=== PATIENT | male | born 1970 | race Hispanic/Latino ===

== ENCOUNTER 2017-11-10 15:42 | Emergency (ER) | payer MEDICAID ==
[2017-11-10] MEDS ORDERED: ONDANSETRON ODT 4 MG TAB ONE (16:20)
[2017-11-10] MEDS ORDERED: LIDOCAINE HCL-MPF 1% 2ML VIAL ONE (16:20)
[2017-11-10] MEDS ORDERED: CEFTRIAXONE SODIUM 1 GM ONE (16:20)
[2017-11-10] MEDS ORDERED: MORPHINE SULFATE 8 MG/ML VIAL ONE (16:21)
== END 2017-11-10 16:48 | disposition home or self-care (01) ==
LOC: EDH 15:42
DX: L02.214 Cutaneous abscess of groin (principal); M54.5 Low back pain; E11.9 Type 2 diabetes mellitus without complications; F20.9 Schizophrenia, unspecified; F31.9 Bipolar disorder, unspecified; Z72.0 Tobacco use; Z98.890 Other specified postprocedural states
CPT/HCPCS: 96372 ×2; 99284; J0696; J2270; J3490

== ENCOUNTER 2018-01-10 11:23 | Emergency (ER) | payer MEDICAID ==
[2018-01-10 12:04] LABS: BASOPHILS % (AUTO) 0.4 % (0.0-5.0); EOSINOPHILS % (AUTO) 0.8 % (0.0-8.0); HEMATOCRIT 49.2 % (42-54); LYMPHOCYTES % (AUTO) 20.1 % (21.0-51.0); MEAN CORPUSCULAR HEMOGLOBIN 32.5 pg (27.0-33.0); MEAN CORPUSCULAR HGB CONC 34.6 g/dL (32.0-36.0); MEAN CORPUSCULAR VOLUME 94.1 fL (79-99); MONOCYTES % (AUTO) 5.5 % (3.0-13.0); NEUTROPHILS % (AUTO) 73.2 % (40.0-77.0); PLATELET COUNT (AUTO) 171 K/uL (130-400); RED BLOOD CELL COUNT(AUTO) 5.23 MIL/uL (4.50-6.20); WHITE BLOOD COUNT (AUTO) 9.5 K/uL (4.8-10.8)
[2018-01-10 12:14] LABS: CREATININE 0.8 mg/dL (0.5-1.5); POTASSIUM 4.3 mmol/L (3.5-5.1)
[2018-01-10 12:16] LABS: INR 0.9 (0.85-1.15); PARTIAL THROMBOPLASTIN TIME 26.6 SEC (26.3-35.5); PROTHROMBIN TIME 9.5 SEC (9.6-11.6)
[2018-01-10 12:23] LABS: ALBUMIN 3.8 g/dL (3.5-5.0); BILIRUBIN,TOTAL 0.3 mg/dL (0.2-1.0); TOTAL PROTEIN, SERUM 7.5 g/dL (6.0-8.3)
[2018-01-10] MEDS ORDERED: ASPIRIN 325 MG TABLET ONE (12:39)
[2018-01-10] MEDS ORDERED: NITROGLYCERIN 0.4 MG SL TAB SL ONE (12:40)
[2018-01-10] MEDS ORDERED: SODIUM CHLORIDE 0.9% 1000ML 1,000 ML IV ONE (12:40)
[2018-01-10] MEDS ORDERED: INSULIN HUMULIN R 100 UNIT/ML 3ML ONE (12:42)
[2018-01-10] MEDS ORDERED: ONDANSETRON HCL 4 MG/2 ML VIAL ONE (13:25)
[2018-01-10] MEDS ORDERED: MORPHINE SULFATE 4 MG/1ML SYG ONE (13:26)
[2018-01-10 13:47] LABS: APPEARANCE,URINE Clear (CLEAR); BILIRUBIN,URINE Negative (NEGATIVE); COLOR,URINE Yellow (YELLOW); GLUCOSE, URINE (UA) >=1000 mg/dL (NEGATIVE); KETONES,URINE 15 mg/dL (NEGATIVE); LEUKOCYTE ESTERASE ,URINE Negative (NEGATIVE); NITRATE,URINE Negative (NEGATIVE); OCCULT BLOOD,URINE Negative (NEGATIVE); PH,URINE 5.5 (5.0-8.0); PROTEIN,URINE Negative (NEGATIVE); UROBILINOGEN,URINE 0.2 mg/dL (0.2-1.0)
[2018-01-10 14:06] LABS: BACTERIA,URINE Rare /HPF (None Seen); RBC,URINE 0-1 /HPF (0-1); SQUAMOUS EPITHELIAL CELL,UR Rare /HPF (0-2); WBC,URINE None Seen /HPF (0-1)
[2018-01-10] MEDS ORDERED: KETOROLAC TROMETHAMINE 30MG/ML ONE (15:42)
== END 2018-01-10 16:18 | disposition home or self-care (01) ==
LOC: EDH 11:23
DX: R07.89 Other chest pain (principal); I10 Essential (primary) hypertension; E11.9 Type 2 diabetes mellitus without complications; F20.9 Schizophrenia, unspecified; F31.9 Bipolar disorder, unspecified; Z72.0 Tobacco use
CPT/HCPCS: 36415; 71045; 80053; 81001; 82550; 83874; 84484 ×2; 85025; 85378; 85610; 85730; 93005 ×2; 96374; 96375; 99284; J1815; J1885; J2270; J2405; J7030

== ENCOUNTER 2018-08-01 17:06 | Inpatient (IN) | payer MEDICAID ==
[~2018-08-01] VITALS: Ht 180.3 cm; Wt 113.1 kg
[2018-08-01 17:38] LABS: BASOPHILS % (AUTO) 0.3 % (0.0-5.0); EOSINOPHILS % (AUTO) 0.4 % (0.0-8.0); HEMATOCRIT 44.8 % (42-54); LYMPHOCYTES % (AUTO) 10.3 % (21.0-51.0); MEAN CORPUSCULAR HEMOGLOBIN 32.9 pg (27.0-33.0); MEAN CORPUSCULAR HGB CONC 34.2 g/dL (32.0-36.0); MEAN CORPUSCULAR VOLUME 96.2 fL (79-99); MONOCYTES % (AUTO) 4.8 % (3.0-13.0); NEUTROPHILS % (AUTO) 84.2 % (40.0-77.0); PLATELET COUNT (AUTO) 290 K/uL (130-400); RED BLOOD CELL COUNT(AUTO) 4.66 MIL/uL (4.50-6.20); RED CELL DISTRIBUTION WIDTH 13.4 % (11.0-15.5); WHITE BLOOD COUNT (AUTO) 14.3 K/uL (4.8-10.8)
[2018-08-01 17:46] LABS: CREATININE 0.8 mg/dL (0.5-1.5); POTASSIUM 3.8 mmol/L (3.5-5.1)
[2018-08-01] MEDS ORDERED: ZOSYN 3.375GM+NS 50ML 50 ML IV ONE (17:49)
[2018-08-01] MEDS ORDERED: MORPHINE SULFATE 4 MG/1ML SYG ONE ×2 (17:50→20:13)
[2018-08-01] MEDS ORDERED: ONDANSETRON HCL 4 MG/2 ML VIAL ONE (17:50)
[2018-08-01 17:51] LABS: ALBUMIN 2.7 g/dL (3.5-5.0); BILIRUBIN,TOTAL 0.2 mg/dL (0.2-1.0); TOTAL PROTEIN, SERUM 8.1 g/dL (6.0-8.3)
[2018-08-01] MEDS ORDERED: SODIUM CHLORIDE 0.9% 1000ML 1,000 ML IV ONE ×2 (17:51→20:14)
[2018-08-01] MEDS ORDERED: ACETAMINOPHEN EXTRA STRENGTH 500 MG TABLET ONE (18:05)
[2018-08-01 18:16] LABS: INR 0.98 (0.85-1.15); PROTHROMBIN TIME 10.3 SEC (9.6-11.6)
[2018-08-01 18:47] LABS: CREATINE KINASE, TOTAL 116 U/L (21-232); MYOGLOBIN 22 ng/mL (10-92); TROPONIN I < 0.04 ng/mL (0.00-0.06)
[2018-08-01] MEDS ORDERED: PREGABALIN 75 MG CAPSULE ONE (20:12)
[2018-08-01] MEDS ORDERED: VANCOMYCIN 1GM+NS 250ML 250 ML IV ONE (20:12)
[2018-08-01] MEDS ORDERED: COMPOUND IV REFRIGERATED 1 EACH IVSOLN MISC PRN (21:15)
[2018-08-01] MEDS ORDERED: MORPHINE SULFATE 2 MG/ML 1ML SYG IVP PRN (21:15)
[2018-08-01] MEDS ORDERED: MORPHINE SULFATE 4 MG/1ML SYG IVP PRN (21:15)
[2018-08-01] MEDS ORDERED: ACETAMINOPHEN 325 MG TAB PO PRN (21:15)
[2018-08-01] MEDS ORDERED: HYDRALAZINE HCL 20 MG/ML VIAL IV PRN (21:15)
[2018-08-01] MEDS ORDERED: LORAZEPAM 2 MG/ML 1 ML VIAL ONE (22:20)
[2018-08-02 01:40] VITALS: BP 151/96
[2018-08-02] MEDS ORDERED: ALPRAZOLAM 1 MG TAB PO ONE (03:15)
[2018-08-02] MEDS ORDERED: MORPHINE SULFATE 2 MG/ML 1ML SYG IVP PRN (03:30)
[2018-08-02] MEDS ORDERED: MORPHINE SULFATE 4 MG/1ML SYG IM PRN (03:30)
[2018-08-02] MEDS ORDERED: MORPHINE SULFATE 2 MG/ML 1ML SYG ONE (03:34)
[2018-08-02] MEDS: LACTATED RINGERS 1000ML 1,000 ML IV SCH ×4 (03:36→22:11)
[2018-08-02] MEDS: ZOSYN 3.375GM+NS 50ML 50 ML IV SCH ×2 (03:36→12:31)
[2018-08-02 04:00] VITALS: BP 150/89
[2018-08-02 04:44] LABS: HEMATOCRIT 39.9 % (42-54); MEAN CORPUSCULAR HEMOGLOBIN 32.2 pg (27.0-33.0); MEAN CORPUSCULAR HGB CONC 33.8 g/dL (32.0-36.0); MEAN CORPUSCULAR VOLUME 95.4 fL (79-99); PLATELET COUNT (AUTO) 284 K/uL (130-400); RED BLOOD CELL COUNT(AUTO) 4.18 MIL/uL (4.50-6.20); RED CELL DISTRIBUTION WIDTH 13.3 % (11.0-15.5); WHITE BLOOD COUNT (AUTO) 10.9 K/uL (4.8-10.8)
[2018-08-02 04:55] LABS: CREATININE 0.7 mg/dL (0.5-1.5); POTASSIUM 3.6 mmol/L (3.5-5.1)
[2018-08-02] MEDS: INSULIN R NPO SSI SQ SCH ×3 (06:00→12:33)
[2018-08-02 08:00] VITALS: BP 149/88
[2018-08-02] MEDS ORDERED: PANTOPRAZOLE SODIUM 40 MG TABLET.DR PO SCH (09:00)
[2018-08-02] MEDS: PREGABALIN 75 MG CAPSULE PO SCH ×3 (10:04→22:05)
[2018-08-02] MEDS: PANTOPRAZOLE 40 MG/VIAL IVP SCH (10:04)
[2018-08-02] MEDS: VANCOMYCIN 1.75 GM in SODIUM CHLORIDE 0.9% 250 ML IV SCH ×2 (10:09→22:19)
[2018-08-02 11:00] VITALS: BP 132/73
--- NOTE | 2018-08-02 13:08 | NUR ---
ASHLYN Jeffrey met with pt and friend at bedside. Pt is on SSD for Bipolar, Schizophrenia, PTSD. Pt has daily provider thru [facility], no DME or services. Pt's mother Jazz Garcia [phone] is er contact. [place] Addendum: 08/02/18 at 1310 by FIORELLA FRIAS SS Amended: Links added.
[2018-08-02] MEDS: ACETAMINOPHEN-CODEINE 300/30MG TAB PO PRN (15:31)
--- NOTE | 2018-08-02 15:47 | NUR ---
[facility] CONSULT PATIENT ASSESSED ORDERED: PATIENT PRESENTS WITH LT SCROTAL AND PERINEAL ABSCESS; PATIENT REFERRED UPON DISCHARGE TO [facility] WITH DR. EZ PAUL; [facility] RECOMMENDATIONS SUBMITTED. Addendum: 08/02/18 at 1551 by JHONATAN BUTLER LVN LVN W Amended: Links added.
[2018-08-02] MEDS: METFORMIN HCL 850 MG TABLET PO SCH (17:00)
[2018-08-02 20:00] VITALS: BP 159/93
[2018-08-02] MEDS: MORPHINE SULFATE 4 MG/1ML SYG IVP PRN (22:11)
[2018-08-03] VITALS (7 sets, daily range): BP systolic 106–144; BP diastolic 71–105
[2018-08-03] MEDS: ACETAMINOPHEN-CODEINE 300/30MG TAB PO PRN ×2 (00:33→22:28)
[2018-08-03] MEDS: INSULIN HUMULIN R 100 UNIT/ML 3ML SQ SCH ×5 (00:36→21:29)
[2018-08-03] MEDS ORDERED: PALI819S IM (02:04)
[2018-08-03] MEDS ORDERED: TRAZ300T2 PO (02:04)
[2018-08-03] MEDS ORDERED: FLUO40CA7 PO (02:04)
[2018-08-03] MEDS ORDERED: LITH300C3 PO (02:04)
[2018-08-03] MEDS: ZOSYN 3.375GM+NS 50ML 50 ML IV SCH ×3 (02:20→17:45)
[2018-08-03 04:15] LABS: HEMATOCRIT 39.7 % (42-54); MEAN CORPUSCULAR HEMOGLOBIN 33.3 pg (27.0-33.0); MEAN CORPUSCULAR VOLUME 95.2 fL (79-99); PLATELET COUNT (AUTO) 266 K/uL (130-400); RED BLOOD CELL COUNT(AUTO) 4.17 MIL/uL (4.50-6.20); RED CELL DISTRIBUTION WIDTH 13.3 % (11.0-15.5); WHITE BLOOD COUNT (AUTO) 10.2 K/uL (4.8-10.8)
[2018-08-03 04:37] LABS: CREATININE 0.9 mg/dL (0.5-1.5); POTASSIUM 3.7 mmol/L (3.5-5.1)
[2018-08-03] MEDS: LACTATED RINGERS 1000ML 1,000 ML IV SCH ×3 (05:30→21:28)
[2018-08-03] MEDS: MORPHINE SULFATE 4 MG/1ML SYG IVP PRN ×2 (05:31→20:55)
[2018-08-03] MEDS: METFORMIN HCL 850 MG TABLET PO SCH ×2 (10:05→17:45)
[2018-08-03] MEDS: PREGABALIN 75 MG CAPSULE PO SCH ×3 (10:06→20:59)
[2018-08-03] MEDS: PANTOPRAZOLE 40 MG/VIAL IVP SCH (10:06)
[2018-08-03] MEDS: VANCOMYCIN 1.75 GM in SODIUM CHLORIDE 0.9% 250 ML IV SCH ×2 (11:02→21:03)
[2018-08-04] MEDS: ZOSYN 3.375GM+NS 50ML 50 ML IV SCH ×3 (02:07→18:00)
[2018-08-04 04:00] VITALS: BP 136/85
[2018-08-04] MEDS: LACTATED RINGERS 1000ML 1,000 ML IV SCH ×3 (04:32→21:38)
[2018-08-04] MEDS: INSULIN HUMULIN R 100 UNIT/ML 3ML SQ SCH ×5 (06:28→21:39)
[2018-08-04 08:00] VITALS: BP 154/81
[2018-08-04] MEDS: METFORMIN HCL 850 MG TABLET PO SCH (08:00)
[2018-08-04] MEDS: PANTOPRAZOLE 40 MG/VIAL IVP SCH (09:38)
[2018-08-04] MEDS: PREGABALIN 75 MG CAPSULE PO SCH ×3 (09:39→21:21)
[2018-08-04] MEDS: VANCOMYCIN 1.75 GM in SODIUM CHLORIDE 0.9% 250 ML IV SCH (09:40)
[2018-08-04 11:00] VITALS: BP 142/89
[2018-08-04 16:00] VITALS: BP 146/104
[2018-08-04] MEDS: VANCOMYCIN 1.5 GM in SODIUM CHLORIDE 0.9% 250 ML IV SCH ×2 (17:08→22:11)
[2018-08-04 20:00] VITALS: BP 137/92
[2018-08-04] MEDS: LORAZEPAM 2 MG/ML 1 ML VIAL IVP PRN (21:13)
[2018-08-04] MEDS: INSULIN GLARGINE 100 UNITS/ML 10 ML VIAL SQ SCH (21:40)
[2018-08-04 22:05] LABS: APPEARANCE,URINE CLEAR (CLEAR); BILIRUBIN,URINE NEGATIVE (NEGATIVE); GLUCOSE, URINE (UA) >=1000 mg/dL (NEGATIVE); KETONES,URINE NEGATIVE (NEGATIVE); LEUKOCYTE ESTERASE ,URINE NEGATIVE (NEGATIVE); NITRATE,URINE NEGATIVE (NEGATIVE); OCCULT BLOOD,URINE NEGATIVE (NEGATIVE); PH,URINE 6.5 (5.0-8.0); PROTEIN,URINE NEGATIVE (NEGATIVE); UROBILINOGEN,URINE 0.2 mg/dL (0.2-1.0)
[2018-08-04 22:06] LABS: COLOR,URINE STRAW (YELLOW)
[2018-08-05] VITALS: BP 136/75
[2018-08-05] MEDS: ZOSYN 3.375GM+NS 50ML 50 ML IV SCH ×3 (01:35→19:57)
[2018-08-05] MEDS: MORPHINE SULFATE 4 MG/1ML SYG IVP PRN ×3 (01:38→19:57)
[2018-08-05 04:00] VITALS: BP 137/74
[2018-08-05] MEDS: ACETAMINOPHEN-CODEINE 300/30MG TAB PO PRN ×2 (04:04→15:12)
[2018-08-05] MEDS: LACTATED RINGERS 1000ML 1,000 ML IV SCH ×2 (05:15→13:15)
[2018-08-05] MEDS: VANCOMYCIN 1.5 GM in SODIUM CHLORIDE 0.9% 250 ML IV SCH ×3 (06:07→22:55)
[2018-08-05] MEDS: INSULIN HUMULIN R 100 UNIT/ML 3ML SQ SCH ×4 (06:09→23:06)
[2018-08-05 07:31] VITALS: BP 130/58
--- NOTE | 2018-08-05 08:00 | NUR ---
PATIENT INSTRUCTED NOT TO GO OUTSIDE FOR A CIGARETTE, WALKED OUT WHILE PASSING MEDS TO OTHER PATIENTS.
[2018-08-05] MEDS: PREGABALIN 75 MG CAPSULE PO SCH ×3 (09:25→19:57)
[2018-08-05] MEDS: PANTOPRAZOLE SODIUM 40 MG TABLET.DR PO SCH (09:25)
[2018-08-05 11:38] VITALS: BP 131/85
--- NOTE | 2018-08-05 12:00 | NUR ---
NO INTERVENTION FOR PER SURGEON ATA.
--- NOTE | 2018-08-05 13:00 | NUR ---
sharron valladares, aware of pt requesting to go for a smoke, states will ask. aware to see home meds list, states will do.
--- NOTE | 2018-08-05 14:00 | NUR ---
PATIENT WAS INSTRUCTED NOT TO GO OUTSIDE, PATIENT KEEPS WALKING OUTSIDE WITHOUT PERMISSION.
[2018-08-05 16:28] VITALS: BP 126/79
--- NOTE | 2018-08-05 18:52 | NUR ---
PACKING CHANGED USING CLEAN TECHNIQUE NS, IODO PACKING AND 4X4S.
[2018-08-05 20:00] VITALS: BP 116/57
[2018-08-05] MEDS: INSULIN GLARGINE 100 UNITS/ML 10 ML VIAL SQ SCH (23:05)
[2018-08-06] VITALS: BP 139/88
[2018-08-06] MEDS: ZOSYN 3.375GM+NS 50ML 50 ML IV SCH ×2 (03:31→10:37)
[2018-08-06 04:00] VITALS: BP 128/91
[2018-08-06 05:51] LABS: BASOPHILS % (AUTO) 0.8 % (0.0-5.0); EOSINOPHILS % (AUTO) 2.2 % (0.0-8.0); HEMATOCRIT 40.5 % (42-54); LYMPHOCYTES % (AUTO) 31.3 % (21.0-51.0); MEAN CORPUSCULAR HEMOGLOBIN 33.1 pg (27.0-33.0); MEAN CORPUSCULAR HGB CONC 34.4 g/dL (32.0-36.0); MEAN CORPUSCULAR VOLUME 96.2 fL (79-99); MONOCYTES % (AUTO) 7.3 % (3.0-13.0); NEUTROPHILS % (AUTO) 58.4 % (40.0-77.0); PLATELET COUNT (AUTO) 211 K/uL (130-400); RED BLOOD CELL COUNT(AUTO) 4.21 MIL/uL (4.50-6.20); RED CELL DISTRIBUTION WIDTH 13.4 % (11.0-15.5); WHITE BLOOD COUNT (AUTO) 7.3 K/uL (4.8-10.8)
[2018-08-06] MEDS: MORPHINE SULFATE 4 MG/1ML SYG IVP PRN ×3 (05:59→22:57)
[2018-08-06 06:04] LABS: CREATININE 0.8 mg/dL (0.5-1.5); POTASSIUM 3.9 mmol/L (3.5-5.1)
--- NOTE | 2018-08-06 06:47 | NUR ---
DRESSING CHANGE PATIENT EDUCATED ABOUT PROCEDURE. PREMEDICATED PATIENT FOR PAIN FOR DRESSING/PACKING CHANGE. REMOVED OLD DRESSING/GAUZE. MODERATELY SATURATED WITH PURULENT DRAINAGE. REPACKED WITH IODOFORM PACKING STRIP ABOUT 8 INCHES LENGTH USED.COVERED WITH 4X4 GAUZE, ABD PAD AND DISPOSSIBLE UNDERWEAR TO KEEP IN PLACE. TOLERATED WELL PROCEDURE.
[2018-08-06] MEDS: PANTOPRAZOLE SODIUM 40 MG TABLET.DR PO SCH (06:48)
[2018-08-06] MEDS: INSULIN HUMULIN R 100 UNIT/ML 3ML SQ SCH ×4 (06:53→23:02)
[2018-08-06 07:27] VITALS: BP 131/80
[2018-08-06] MEDS: PREGABALIN 75 MG CAPSULE PO SCH ×3 (10:50→22:52)
[2018-08-06 11:20] VITALS: BP 112/64
--- NOTE | 2018-08-06 12:30 | NUR ---
ROUNDS/ E[employer] FOR [employer] HERE, STATUS AND UPDATE GIVEN
[2018-08-06] MEDS: VANCOMYCIN 1.5 GM in SODIUM CHLORIDE 0.9% 250 ML IV SCH (15:08)
[2018-08-06 16:14] VITALS: BP 115/78
[2018-08-06] MEDS ORDERED: AMOX1TAB16 PO (16:38)
--- NOTE | 2018-08-06 16:55 | NUR ---
DRESSING CHANGE MOTHER AT BEDSIDE FOR DRESSING CHANGE, EXPLAINED AND OBSERVED DRESSING [place], REMOVED 1 IN. IODOFORM PACKING, NO REDNESS OR DRAINAGE NOTED, BEEFY RED, PACKED WITH IODOFORM ALSO THERE A RIGHT PERINEUM WOUND, SMALL AMOUNT OF SEROSANGUINEOUS NOTED TO GAUZE, NO ODOR OR DRAINAGE FROM WOUND, BEEFY RED, PACKED WITH WET GAUZE PAD COVERED WITH GAUZE PAD AND ABD PAD, TOLERATED WELL.
--- NOTE | 2018-08-06 16:57 | NUR ---
REFERRAL TO [facility] CONSENT 08/05/18 [facility]- CONFIRMED [employer] [employer] FAXED REFERRAL. WAITING FOR CALL BACK Addendum: 08/06/18 at 1658 by URIEL ARENAS RN CM Amended: Links added.
--- NOTE | 2018-08-06 17:25 | NUR ---
ROUNDS/DR. LENNY GALVEZ TO SEE PT, ASSESS WOUND, NO FURTHER ORDERS, ONLY TO FOLLOW UP 1 WEEK AFTER DC ORDERED.
[2018-08-06] MEDS: AMOXICILLIN/POTASSIUM CLAV 875-125 TABLET PO SCH (17:51)
[2018-08-06 20:00] VITALS: BP 122/69
[2018-08-06] MEDS: INSULIN GLARGINE 100 UNITS/ML 10 ML VIAL SQ SCH (22:59)
[2018-08-07] VITALS: BP 126/92
[2018-08-07] MEDS: ACETAMINOPHEN-CODEINE 300/30MG TAB PO PRN (01:54)
[2018-08-07] MEDS: LORAZEPAM 2 MG/ML 1 ML VIAL IVP PRN (01:54)
[2018-08-07 04:00] VITALS: BP 120/69
[2018-08-07] MEDS: PANTOPRAZOLE SODIUM 40 MG TABLET.DR PO SCH (05:02)
[2018-08-07] MEDS: AMOXICILLIN/POTASSIUM CLAV 875-125 TABLET PO SCH ×2 (05:02→14:57)
[2018-08-07] MEDS: MORPHINE SULFATE 4 MG/1ML SYG IVP PRN (05:20)
[2018-08-07] MEDS: INSULIN HUMULIN R 100 UNIT/ML 3ML SQ SCH ×2 (06:37→12:19)
[2018-08-07 07:30] VITALS: BP 118/84
[2018-08-07] MEDS: PREGABALIN 75 MG CAPSULE PO SCH (08:41)
[2018-08-07 11:00] VITALS: BP 110/78
--- NOTE | 2018-08-07 12:00 | NUR ---
REFERRAL TO [facility] COMPLETED AND WOUND CARE ORDERS WERE FAXED, PENDING DISCHARGE CHART TAGGED, JOSIAS AWARE Addendum: 08/07/18 at 1452 by URIEL ARENAS RN CM Amended: Links added.
[2018-08-07] MEDS ORDERED: INSU3INS3 SQ (14:42)
--- NOTE | 2018-08-07 14:45 | NUR ---
Pt discharged in stable condition. Wound care done to left scrotum and left perineum. Wound care pictures and measurements to left scrotum [id number], Removed old dressing, cleansed with NS, patted dry, applied Iodoform packing, covered with mesh underwear, wound care measurement to perineum [id number], removed old dressing, cleansed with NS, patted dry, applied wet to dry dressing, covered with mesh underwear pt tolerated well. Pictures placed in chart. Instructed to f/u with Dr. Lockett 08/16/18with appt made and with Dr. Mason in 3-5 days as walkin. Instructed to start antibiotics and finish until done. Report called to SHOBHA Zambrano . Number for home health given to pt. Telepack removed IV removed Right Hand 20g, pt tolerated well. No Questions from pt and verbalized understanding
== END 2018-08-07 15:08 | disposition home health service (06) | DRG 720 ==
LOC: EDH 17:06 → OBSVTOIN 17:07 → EDHIP 17:07 → 4CH 08-02 00:17
PROVIDERS: ADMIT Internal Medicine Critical Care Medicine; ATTEND Internal Medicine Critical Care Medicine
DX: A41.9 Sepsis, unspecified organism (principal); E11.65 Type 2 diabetes mellitus with hyperglycemia; L03.315 Cellulitis of perineum; E66.01 Morbid (severe) obesity due to excess calories; I10 Essential (primary) hypertension; F17.210 Nicotine dependence, cigarettes, uncomplicated; F31.9 Bipolar disorder, unspecified; F43.10 Post-traumatic stress disorder, unspecified; B95.1 Streptococcus, group B, as the cause of diseases classified elsewhere; L02.215 Cutaneous abscess of perineum; Z91.19 Patient's noncompliance with other medical treatment and regimen; Z68.34 Body mass index [BMI] 34.0-34.9, adult
CPT/HCPCS: 36415; 71045; 72192; 80048; 80053; 80061; 80202; 81003; 82550; 82948; 83036; 83605; 83874; 84484; 85025; 85027; 85610; 85730; 87040; 87070; 87077; 87088; 87186; 93005; C9113; G0378; J1815; J2060; J2270; J2405; J2543; J3370; J7030; J7120

== ENCOUNTER 2020-11-20 14:53 | Emergency (ER) | payer MEDICAID ==
[~2020-11-20] VITALS: Ht 180.3 cm; Wt 117.9 kg
[~2020-11-20 14:53] MED LIST: AMOX1TAB16 PO; FLUO40CA7 PO; INSU3INS3 SQ; LITH300C3 PO; PALI819S IM; TRAZ300T2 PO
[2020-11-20 14:55] VITALS: BP 121/64
[2020-11-20 15:28] LABS: BASOPHILS % (AUTO) 0.3 % (0.0-5.0); EOSINOPHILS % (AUTO) 0.3 % (0.0-8.0); LYMPHOCYTES % (AUTO) 10.2 % (21.0-51.0); MEAN CORPUSCULAR HEMOGLOBIN 32.2 pg (27.0-33.0); MEAN CORPUSCULAR HGB CONC 34.4 g/dL (32.0-36.0); MEAN CORPUSCULAR VOLUME 93.7 fL (79-99); MONOCYTES % (AUTO) 7.1 % (3.0-13.0); NEUTROPHILS % (AUTO) 81.3 % (40.0-77.0); PLATELET COUNT (AUTO) 226 K/uL (130-400); RED BLOOD CELL COUNT(AUTO) 4.59 MIL/uL (4.50-6.20); RED CELL DISTRIBUTION WIDTH 12.4 % (11.0-15.5); WHITE BLOOD COUNT (AUTO) 7.8 K/uL (4.8-10.8)
[2020-11-20 15:43] LABS: CREATININE 0.8 mg/dL (0.5-1.5); POTASSIUM 4.4 mmol/L (3.5-5.1)
[2020-11-20 15:47] LABS: ALBUMIN 3.5 g/dL (3.5-5.0); BILIRUBIN,TOTAL 0.4 mg/dL (0.2-1.0); TOTAL PROTEIN, SERUM 7.3 g/dL (6.0-8.3)
== END 2020-11-20 22:24 | disposition left against medical advice (07) ==
LOC: EDH 14:53
DX: R06.02 Shortness of breath (principal); Z20.822 Contact with and (suspected) exposure to COVID-19; Z53.21 Procedure and treatment not carried out due to patient leaving prior to being seen by health care provider
CPT/HCPCS: 36415; 71045; 80053; 85025; 87635; 87804 ×2; 93005; C9803